=== PATIENT | female | born 1995 | race African-American/Black ===

== ENCOUNTER 2016-09-17 17:50 | Emergency (ER) | payer MEDICAID ==
[~2016-09-17] VITALS: Ht 162.6 cm; Wt 52.5 kg
[2016-09-17 18:10] VITALS: BP 128/77
[2016-09-17] MEDS ORDERED: PLEASE ENTER HEIGHT AND WEIGHT MC SCH (18:30)
[2016-09-17] MEDS ORDERED: SODIUM CHLORIDE FLUSH 10ML SYR IVF ONE (18:30)
[2016-09-17] MEDS ORDERED: PLEASE ENTER ALLERGIES MC SCH ×2 (18:30)
[2016-09-17] MEDS ORDERED: SODIUM CHLORIDE 0.9% 1,000ML IVBOLUS ONE (18:30)
== END 2016-09-17 20:30 | disposition home or self-care (01) ==
LOC: EDBD 17:50 → ED 20:22
DX: O20.0 Threatened abortion (principal)
CPT/HCPCS: 36415; 76801; 81003; 84702; 85025; 86901; 96360; 99285; J7030

== ENCOUNTER 2016-10-03 04:42 | Emergency (ER) | payer MEDICAID ==
[~2016-10-03] VITALS: Ht 160 cm; Wt 51.2 kg
[2016-10-03 05:44] LABS: BLOOD UREA NITROGEN 12 mg/dL (7-18)
[2016-10-03 06:18] VITALS: BP 108/53
== END 2016-10-03 06:56 | disposition left against medical advice (07) ==
LOC: ED 06:27
DX: O46.91 Antepartum hemorrhage, unspecified, first trimester (principal); Z3A.01 Less than 8 weeks gestation of pregnancy
CPT/HCPCS: 36415; 76801; 80048; 82040; 84702; 85025; 99285

== ENCOUNTER 2016-10-24 08:08 | Emergency (ER) | payer MEDICAID ==
[~2016-10-24] VITALS: Ht 160 cm; Wt 50.8 kg
[2016-10-24 08:12] VITALS: BP 107/68
[2016-10-24] MEDS ORDERED: PRENANTAL (08:33)
[2016-10-24 09:02] LABS: BLOOD UREA NITROGEN 12 mg/dL (7-18)
== END 2016-10-24 09:38 | disposition left against medical advice (07) ==
LOC: ED 09:03
DX: O20.0 Threatened abortion (principal); Z3A.11 11 weeks gestation of pregnancy
CPT/HCPCS: 36415; 76801; 80048; 82040; 84702; 85025

== ENCOUNTER 2016-11-11 03:38 | Emergency (ER) | payer MEDICAID ==
[~2016-11-11] VITALS: Ht 160 cm; Wt 50.3 kg
[~2016-11-11 03:38] MED LIST: PRENANTAL
[2016-11-11 03:40] VITALS: BP 119/82
== END 2016-11-11 05:07 | disposition home or self-care (01) ==
LOC: ED 04:30
DX: O23.12 Infections of bladder in pregnancy, second trimester (principal); Z3A.14 14 weeks gestation of pregnancy
CPT/HCPCS: 81003; 99283